=== PATIENT | male | born 1940 | race Caucasian/White ===

== ENCOUNTER 2018-01-18 06:45 | Emergency (ER) | payer OTHER ==
[~2018-01-18] VITALS: Ht 170.2 cm; Wt 73.5 kg
[2018-01-18 07:01] VITALS: Ht 170.2 cm; Wt 73.5 kg
[2018-01-18 09:36] VITALS: BP 149/80
== END 2018-01-18 09:54 | disposition home or self-care (01) ==
LOC: ED 06:45
DX: M54.5 Low back pain (principal); I10 Essential (primary) hypertension; E11.9 Type 2 diabetes mellitus without complications; E78.00 Pure hypercholesterolemia, unspecified